=== PATIENT | male | born 1965 | race Hispanic/Latino ===

== ENCOUNTER → 2022-04-25 | Outpatient (CLI) | payer OTHER ==
[~2022-04-25] MED LIST: IOPAMIDOL 370 MG/ML 100 ML INFUS..BTL INJ ONE
[2022-04-25 10:14] LABS: CREATININE, SERUM 0.82 mg/dL (0.72-1.25)
== END ==
LOC: CT 08:57
PROVIDERS: ATTEND Internal Medicine Endocrinology, Diabetes & Metabolism
DX: R10.10 Upper abdominal pain, unspecified (principal)
CPT/HCPCS: 36415; 74160; 82565; 84520; Q9967